=== PATIENT | male | born 1940 | race Caucasian/White ===

== ENCOUNTER 2019-05-31 14:37 | Outpatient (CLI) | payer OTHER ==
[~2019-05-31] VITALS: Ht 182.9 cm; Wt 97.7 kg
[2019-05-31] MEDS ORDERED: METO-370 PO (14:44)
[2019-05-31] MEDS ORDERED: TRIA1CAP4 PO (14:44)
== END 2019-05-31 14:48 | disposition home or self-care (01) ==
LOC: PREOP 14:37
PROVIDERS: ATTEND Specialist
DX: Z01.818 Encounter for other preprocedural examination (principal)

== ENCOUNTER 2019-06-07 06:46 | Day surgery (SDC) | payer MEDICAID, MEDICARE, OTHER ==
[~2019-06-07] VITALS: Ht 182.9 cm; Wt 97.7 kg
[~2019-06-07 06:46] MED LIST: METO-370 PO; TRIA1CAP4 PO
[2019-06-07 07:50] VITALS: BP 127/92
[2019-06-07] MEDS ORDERED: POVIDONE (BETADINE) OPHTH SOLN 5% 30 ML OP ONE (08:00)
[2019-06-07] MEDS ORDERED: LIDOCAINE PF 1% 2 ML AMP IR PRN (08:00)
[2019-06-07] MEDS ORDERED: TIMOLOL MALEATE 0.5% 5 ML (TIMOPTIC) BTL OU PRN (08:00)
[2019-06-07] MEDS ORDERED: MOXIFLOXACIN OPHTH SOLN 5 MG/ML 0.3 ML SYRINGE OP ONE (08:00)
[2019-06-07] MEDS: TETRACAINE 0.5% OPHTH SOLN 4 ML BTL (SINGLE DOSE ONLY) OU PRN ×4 (08:04→08:20)
[2019-06-07] MEDS: CYCLOPENTOLATE 1% (CYCLOGYL) 2 ML DROPS OP SCH ×3 (08:10→08:20)
[2019-06-07] MEDS: PHENYLEPHRINE 10% OPHTH (NEO-SYN) 5 ML BTL OU SCH ×3 (08:10→08:20)
[2019-06-07] MEDS ORDERED: acetaZOLAMIDE ER 500 MG CAP (DIAMOX SEQUELS) PO ONE (08:30)
[2019-06-07] MEDS ORDERED: MIDAZOLAM 2 MG/2 ML (VERSED) VIAL ONE (09:08)
--- NOTE | 2019-06-07 09:34 | Ophthalmologist Pre-Op Note ---
Pre-Operative Progress Note H&P Reviewed The H&P was reviewed, patient examined and no changes noted. Date H&P Reviewed: Jun 07, 2019 Time H&P Reviewed: 09:05 Pre-Op Dx Cataract, Left Eye GISSEL HUFFMAN MD Jun 07, 2019 09:34 POS
--- NOTE | 2019-06-07 09:34 | Ophthalmology Operative Report ---
Cataract removal/placement IOL PREOPERATIVE DIAGNOSIS: Cataract Left Eye POSTOPERATIVE DIAGNOSIS: Cataract Left Eye PROCEDURE: Cataract removal and placement of posterior chamber implant, left eye SURGEON: Dano Huffman ANESTHESIA: Topical with sedation COMPLICATIONS: None ESTIMATED BLOOD LOSS: Minimal DESCRIPTION OF PROCEDURE: After proper informed consent was obtained, the patient, a 78 male, was taken to the Operating Room and the left eye was anesthetized with tetracaine. The left eye was then prepped and draped in the usual manner. A wire lid speculum was placed. A paracentesis was made at the left hand position. Preservative free lidocaine was injected into the anterior chamber followed by viscoelastic. A clear corneal incision was made in the temporal position. A capsulorrhexis was preformed and the central nuclear and cortical material were removed. The posterior capsule was polished and an Gigi 20.0 [id number] was placed into the capsular bag. The residual viscoelastic was aspirated and balanced saline solution was injected into the anterior chamber. Moxifloxacin was injected into the anterior chamber. The wound was checked and found to be water tight. The patient tolerated the procedure well without complications. DANO HUFFMAN MD Jun 07, 2019 09:34 POS
[2019-06-07 09:45] VITALS: BP 109/79
--- NOTE | 2019-06-07 10:26 | Anesthesia-General Post-Op ---
MAC Patient Condition Mental Status/LOC: Same as Preop Cardiovascular: Satisfactory Nausea/Vomiting: Absent Respiratory: Satisfactory Pain: Controlled Complications: Absent Post Op Complications Complications None Follow Up Care/Instructions Patient Instructions None needed. Anesthesiology Discharge Order Discharge Order Patient is doing well, no complaints, stable vital signs, no apparent adverse anesthesia problems. No complications reported per nursing. ALVERTO ATKINS CRNA Jun 07, 2019 10:26 POS
== END 2019-06-07 09:45 | disposition home or self-care (01) ==
LOC: SDC 06:46
PROVIDERS: ATTEND Specialist
DX: H25.12 Age-related nuclear cataract, left eye (principal); I10 Essential (primary) hypertension; G62.9 Polyneuropathy, unspecified; Z79.899 Other long term (current) drug therapy

== ENCOUNTER 2019-06-20 05:35 | Outpatient (CLI) | payer MEDICARE ==
[~2019-06-20] VITALS: Ht 182 cm; Wt 97.7 kg
== END 2019-06-20 14:48 | disposition home or self-care (01) ==
LOC: PREOP 05:35
PROVIDERS: ATTEND Specialist
DX: Z01.818 Encounter for other preprocedural examination (principal)

== ENCOUNTER 2019-06-23 05:46 | Day surgery (SDC) | payer MEDICARE ==
[~2019-06-23] VITALS: Ht 182.9 cm; Wt 97.7 kg
[2019-06-23] MEDS ORDERED: MOXIFLOXACIN OPHTH SOLN 5 MG/ML 0.3 ML SYRINGE OP ONE (06:15)
[2019-06-23] MEDS ORDERED: POVIDONE (BETADINE) OPHTH SOLN 5% 30 ML OP ONE (06:15)
[2019-06-23] MEDS ORDERED: TIMOLOL MALEATE 0.5% 5 ML (TIMOPTIC) BTL OU PRN (06:15)
[2019-06-23] MEDS ORDERED: LIDOCAINE PF 1% 2 ML AMP IR PRN (06:15)
[2019-06-23] MEDS: TETRACAINE 0.5% OPHTH SOLN 4 ML BTL (SINGLE DOSE ONLY) OU PRN ×4 (06:16→06:40)
[2019-06-23 06:21] VITALS: BP 146/98
[2019-06-23] MEDS: PHENYLEPHRINE 10% OPHTH (NEO-SYN) 5 ML BTL OU SCH ×3 (06:25→06:41)
[2019-06-23] MEDS: CYCLOPENTOLATE 1% (CYCLOGYL) 2 ML DROPS OP SCH ×3 (06:25→06:41)
--- NOTE | 2019-06-23 07:05 | Ophthalmologist Pre-Op Note ---
Pre-Operative Progress Note H&P Reviewed The H&P was reviewed, patient examined and no changes noted. Date H&P Reviewed: Jun 23, 2019 Time H&P Reviewed: 07:05 Pre-Op Dx Cataract, Right Eye GISSEL HUFMFAN MD Jun 23, 2019 07:05 POS
[2019-06-23] MEDS ORDERED: MIDAZOLAM 2 MG/2 ML (VERSED) VIAL ONE (07:17)
--- NOTE | 2019-06-23 07:22 | Ophthalmology Operative Report ---
Cataract removal/placement IOL PREOPERATIVE DIAGNOSIS: Cataract Right Eye POSTOPERATIVE DIAGNOSIS: Cataract Right Eye PROCEDURE: Cataract removal and placement of posterior chamber implant, right eye SURGEON: Dano Huffman ANESTHESIA: Topical with sedation COMPLICATIONS: None ESTIMATED BLOOD LOSS: Minimal DESCRIPTION OF PROCEDURE: After proper informed consent was obtained, the patient, a 78 male, was taken to the Operating Room and the right eye was anesthetized with tetracaine. The right eye was then prepped and draped in the usual manner. A wire lid speculum was placed. A paracentesis was made at the left hand position. Preservative free lidocaine was injected into the anterior chamber followed by viscoelastic. A clear corneal incision was made in the temporal position. A capsulorrhexis was preformed and the central nuclear and cortical material were removed. The posterior capsule was polished and Gigi [id number] 20.0 IOL was placed into the capsular bag. The residual viscoelastic was aspirated and balanced saline solution was injected into the anterior chamber. Moxifloxacin was injected into the anterior chamber. The wound was checked and found to be water tight. The patient tolerated the procedure well without complications. DANO HUFFMAN MD Jun 23, 2019 07:22 POS
[2019-06-23 07:30] VITALS: BP 115/79
[2019-06-23] MEDS ORDERED: acetaZOLAMIDE ER 500 MG CAP (DIAMOX SEQUELS) PO ONE (07:30)
--- NOTE | 2019-06-23 13:00 | Anesthesia-General Post-Op ---
MAC Patient Condition Mental Status/LOC: Same as Preop Cardiovascular: Satisfactory Nausea/Vomiting: Absent Respiratory: Satisfactory Pain: Controlled Complications: Absent Post Op Complications Complications None Follow Up Care/Instructions Patient Instructions None needed. Anesthesiology Discharge Order Discharge Order Patient is doing well, no complaints, stable vital signs, no apparent adverse anesthesia problems. No complications reported per nursing. DEON HI CRNA Jun 23, 2019 13:00 POS
== END 2019-06-23 07:30 | disposition home or self-care (01) ==
LOC: SDC 05:46
PROVIDERS: ATTEND Specialist
DX: H25.11 Age-related nuclear cataract, right eye (principal); I10 Essential (primary) hypertension; Z87.891 Personal history of nicotine dependence; Z79.899 Other long term (current) drug therapy

== ENCOUNTER → 2019-09-26 | Outpatient (CLI) | payer MEDICARE ==
[~2019-09-26] MED LIST changes: +CATHETER FLUSH 10 ML SYR IV PRN; -METO-370 PO; +METO50TA7 PO
--- NOTE | 2019-09-26 12:59 | Diagnostic Imaging Report ---
PROCEDURE: CT abdomen and pelvis without contrast. TECHNIQUE: Multiple contiguous axial images were obtained through the abdomen and pelvis without the use of intravenous contrast. Auto Exposure Controls were utilized during the CT exam to meet ALARA standards for radiation dose reduction. INDICATION: Prostate cancer. COMPARISON: No prior examinations are available for comparison. FINDINGS: The lung bases are clear. Liver is normal in size without focal lesions. There is cholelithiasis. There is no biliary ductal dilatation. Spleen is normal. Pancreas is unremarkable. There are bilateral renal cysts. Aorta is nonaneurysmal. There is an umbilical hernia containing a partial loop of small bowel compatible with a Ramsay hernia. There is no evidence of obstruction or strangulation. There is no free air. There is no ascites. No focal inflammatory changes. There is diverticular disease without evidence of diverticulitis. Bladder is normal. There is bilateral spondylolysis at L5 with grade 2 spondylolisthesis of L5 on S1. There are diffuse degenerative changes. There is no definitive evidence of osteoblastic metastatic disease. IMPRESSION: Cholelithiasis. Bilateral adrenal nodules. Bilateral renal cysts. Umbilical hernia containing a partial loop of small bowel without evidence of obstruction or strangulation. Diverticular disease without evidence of diverticulitis. Bilateral spondylolysis at L5 with grade 2 spondylolisthesis of L5 on S1. Additionally there are diffuse degenerative changes of the spine. There is however no definitive evidence of osteoblastic metastatic disease. Dictated by: Dictated on workstation # [id number]
--- NOTE | 2019-09-26 16:16 | Diagnostic Imaging Report ---
INDICATION: Prostate cancer. TECHNIQUE: Anterior and posterior whole-body planar imaging was performed three hours after administration of 27.2 mCi of technetium-99m MDP. FINDINGS: There is an increased uptake in the AC joints, knees, and feet bilaterally presumably osteoarthritic. There is no evidence for widespread osteoblastic metastatic disease. There is otherwise normal uptake of isotope throughout the remainder of the axial and appendicular skeleton. There is physiologic uptake within the kidneys bilaterally with excretion of urinary bladder. IMPRESSION: No evidence of osteoblastic metastatic disease. Dictated by: Dictated on workstation # [id number]
== END ==
LOC: CARD 11:46
PROVIDERS: ATTEND Urology
DX: C61 Malignant neoplasm of prostate (principal); E27.9 Disorder of adrenal gland, unspecified; N28.1 Cyst of kidney, acquired; K42.9 Umbilical hernia without obstruction or gangrene; K57.30 Diverticulosis of large intestine without perforation or abscess without bleeding; M47.816 Spondylosis without myelopathy or radiculopathy, lumbar region; M43.17 Spondylolisthesis, lumbosacral region
CPT/HCPCS: 74176; 78306

== ENCOUNTER 2019-10-31 14:21 | Outpatient (CLI) | payer MEDICARE ==
[~2019-10-31] VITALS: Ht 177 cm; Wt 103.5 kg
[~2019-10-31 14:21] MED LIST changes: -CATHETER FLUSH 10 ML SYR IV PRN
[2019-10-31] MEDS ORDERED: ALLO100T PO (14:28)
[2019-10-31] MEDS ORDERED: AMLO5TAB9 PO (14:28)
[2019-10-31 14:30] VITALS: BP 137/85
== END 2019-10-31 15:04 | disposition home or self-care (01) ==
LOC: PREOP 14:21
PROVIDERS: ATTEND Urology
DX: Z01.818 Encounter for other preprocedural examination (principal)
CPT/HCPCS: 87081

== ENCOUNTER 2019-11-08 07:16 | Day surgery (SDC) | payer MEDICARE ==
[2019-11-08] VITALS (10 sets, daily range): BP systolic 112–133; BP diastolic 73–99
[~2019-11-08] VITALS: Ht 177 cm; Wt 103.5 kg
[~2019-11-08 07:16] MED LIST changes: +ALLO100T PO; +AMLO5TAB9 PO
--- OUTSIDE RECORDS SUMMARY | 2019-11-08 07:22 | XMS REPORT | Continuity of Care Document ---
Author Organization Unknown Address Unknown Phone Unavailable Allergies Active Description Code Type Severity Reaction Onset Reported/Identified Relationship to Patient Clinical Status Yes NO KNOWN DRUG ALLERGIES UNKNOWN UNKNOWN Yes No Known Drug Allergies [id number] Drug Allergy Unknown N/A 06/20/2019 Medications Medication Packaging Start Date St op Date Route Dosage Sig LACTATED RINGERS 1000CC IV BAG INJ ml 08/03/2019 08/10/2019 CONTINUOUSEVERY 0 Hour CEFAZOLIN VIAL INJ 1 GM (ANCEF) 08/03/2019 08/03/2019 ONCE&0830 NORMAL SALINE 1000CC IV BAG INJ 0.9 % (NS 1000CC IV BAG) ml 08/03/2019 08/18/2019 CONTINUOUSEVERY 0 Hour Problems Date Dx Coded Attending Type Code Diagnosis Diagnosed By 06/07/2019 GISSEL HUFFMAN MD Ot G62 .9 POLYNEUROPATHY, UNSPECIFIED 06/07/2019 GISSEL HUFFMAN MD Ot H25.12 AGE-RELATED NUCLEAR CATARACT, LEFT EYE 06/07/2019 GISSEL HUFFMAN MD Ot I10 ESSENTIAL (PRIMARY) HYPERTENSION 06/07/2019 GISSEL HUFFMAN MD Ot 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 06/13/2019 GISSEL HUFFMAN MD Ot G62 .9 POLYNEUROPATHY, UNSPECIFIED 06/13/2019 GISSEL HUFFMAN MD Ot H25.12 AGE-RELATED NUCLEAR CATARACT, LEFT EYE 06/13/2019 GISSEL HUFFMAN MD Ot I10 ESSENTIAL (PRIMARY) HYPERTENSION 06/13/2019 GISSEL HUFFMAN MD Ot Z79.899 OTHER ALF (CURRENT) DRUG THERAPY 06/20/2019 GISSEL HUFFMAN MD Ot Z01.818 ENCOUNTER FOR OTHER PREPROCEDURAL EXAMIN 06/23/2019 GISSEL HUFFMAN MD Ot H25.11 AGE-RELATED NUCLEAR CATARACT, RIGHT EYE 06/23/2019 GISSEL HUFFMAN MD Ot I10 ESSENTIAL (PRIMARY) HYPERTENSION 06/23/2019 GISSEL HUFFMAN MD Ot Z79.899 OTHER ALF (CURRENT) DRUG THERAPY 06/23/2019 GISSEL HUFFMAN MD Ot Z87.891 PERSONAL HISTORY OF NICOTINE DEPENDENCE 06/27/2019 GISSEL HUFFMAN MD Ot H25.11 AGE-RELATED NUCLEAR CATARACT, RIGHT EYE 06/27/2019 GISSEL HUFFMAN MD Ot I10 ESSENTIAL (PRIMARY) HYPERTENSION 06/27/2019 GISSEL HUFFMAN MD Ot Z79.899 OTHER ALF (CURRENT) DRUG THERAPY 06/27/2019 GISSEL HUFFMAN MD Ot Z87.891 PERSONAL HISTORY OF NICOTINE DEPENDENCE 06/29/2019 GISSEL HUFFMAN MD Ot H25.11 AGE-RELATED NUCLEAR CATARACT, RIGHT EYE 06/29/2019 GISSEL HUFFMAN MD Ot I10 ESSENTIAL (PRIMARY) HYPERTENSION 06/29/2019 GISSEL HUFFMAN MD Ot Z79.899 OTHER ALF (CURRENT) DRUG THERAPY 06/29/2019 GISSEL HUFFMAN MD Ot Z87.891 PERSONAL HISTORY OF NICOTINE DEPENDENCE 07/28/2019 AVI MCKEON M86.8X4 OTHER OSTEOMYELITIS, HAND 08/03/2019 AVI MCKEON 274.00 GOUTY ARTHROPATHY, UNSPECIFIED 08/03/2019 AVI MCKEON M10.041 IDIOPATHIC GOUT, RIGHT HAND 09/27/2019 JOSE SAMSON MD Ot C61 MALIGNANT NEOPLASM OF PROSTATE 09/27/2019 JOSE SAMSON MD Ot E27.9 DISORDER OF ADRENAL GLAND, UNSPECIFIED 09/27/2019 JOSE SAMSON MD Ot K42.9 UMBILICAL HERNIA WITHOUT OBSTRUCTION OR 09/27/2019 JOSE SAMSON MD, Ot K57.3 0 DVRTCLOS OF LG INT W/O PERFORATION OR AB 09/27/2019 JOSE SAMSON MD, Ot M43.1 7 SPONDYLOLISTHESIS, LUMBOSACRAL REGION 09/27/2019 JOSE SAMSON MD, Ot M47.8 16 SPONDYLOSIS W/O MYELOPATHY OR RADICULOPA 09/27/2019 JOSE SAMSON MD Ot N28.1 CYST OF KIDNEY, ACQUIRED 09/28/2019 MALI MD, JOSE A Ot C61 MALIGNANT NEOPLASM OF PROSTATE 09/28/2019 JOSE SAMSON MD Ot E27.9 DISORDER OF ADRENAL GLAND, UNSPECIFIED 09/28/2019 JOSE SAMSON MD Ot K42.9 UMBILICAL HERNIA WITHOUT OBSTRUCTION OR 09/28/2019 JOSE SAMSON MD Ot K57.3 0 DVRTCLOS OF LG INT W/O PERFORATION OR AB 09/28/2019 JOSE SAMSON MD Ot M43.1 7 SPONDYLOLISTHESIS, LUMBOSACRAL REGION 09/28/2019 JOSE SAMSON MD Ot M47.8 16 SPONDYLOSIS W/O MYELOPATHY OR RADICULOPA 09/28/2019 JOSE SAMSON MD Ot N28.1 CYST OF KIDNEY, ACQUIRED 10/02/2019 JOSE SAMSON MD Ot C61 MALIGNANT NEOPLASM OF PROSTATE 10/02/2019 JOSE SAMSON MD Ot E27.9 DISORDER OF ADRENAL GLAND, UNSPECIFIED 10/02/2019 JOSE SAMSON MD Ot K42.9 UMBILICAL HERNIA WITHOUT OBSTRUCTION OR 10/02/2019 JOSE SAMSON MD Ot K57.3 0 DVRTCLOS OF LG INT W/O PERFORATION OR AB 10/02/2019 JOSE SAMSON MD Ot M43.1 7 SPONDYLOLISTHESIS, LUMBOSACRAL REGION 10/02/2019 JOSE SAMSON MD Ot M47.8 16 SPONDYLOSIS W/O MYELOPATHY OR RADICULOPA 10/02/2019 JOSE SAMSON MD Ot N28.1 CYST OF KIDNEY, ACQUIRED 10/30/2019 JOSE SAMSON MD Ot C61 MALIGNANT NEOPLASM OF PROSTATE 10/30/2019 JOSE SAMSON MD Ot E27.9 DISORDER OF ADRENAL GLAND, UNSPECIFIED 10/30/2019 JOSE SAMSON MD Ot K42.9 UMBILICAL HERNIA WITHOUT OBSTRUCTION OR 10/30/2019 JOSE SAMSON MD Ot K57.3 0 DVRTCLOS OF LG INT W/O PERFORATION OR AB 10/30/2019 JOSE SAMSON MD Ot M43.1 7 SPONDYLOLISTHESIS, LUMBOSACRAL REGION 10/30/2019 JOSE SAMSON MD Ot M47.8 16 SPONDYLOSIS W/O MYELOPATHY OR RADICULOPA 10/30/2019 MALI VELA, JOSE Paez Ot N28.1 CYST OF KIDNEY, ACQUIRED Procedures There is no data. Results Test Result Range Rheumatiod Factor, Quantitative - 11:47 Rheumatoid Factor, Quantitative <15 IU/ml 0-30 Uric Acid - 07/29/19 11:47 Uric Acid 9.6 mg/dL 2.6-7.2 Crystal,Synovial/Joint Fl - 07/29/19 15: 00 CRYSTAL,SYNOVIAL/JOINT FL test not performed Crystal,Synovial/Joint Fl - 07/29/19 15: 00 Crystal,Synovial/Joint Fl TNP Request Problem - 07/29/19 15:00 Request Problem TNP Comprehensive Metabolic Panel - 08/03/19 07:41 Albumin 3.9 g/dL 3.6-5.1 ALP 80 U/L 35-130 ALT 13 U/L 6-45 Anion Gap 16 6-14 AST 21 U/L 2-40 BUN 31 mg/dL 5-25 Calcium 8.7 mg/dL 8.3-10.4 Chloride 103 mmol/L 95-114 CO2 24 mEq/L 22-33 Creat 2.00 mg/dL 0.50-1.50 eGFR 32 mL/min/1.73m2 >59 Globulin 3.0 g/dL 2.3-3.5 Glucose 95 mg/dL 70-110 Osmo 293 280-295 Potassium 4.3 mmol/L 3.5-5.3 Sodium 139 mmol/L 134-148 TBil 0.9 mg/dL 0.2-1.2 TP 6.9 g/dL 6.0-8.3 MRSA Screen - 08/03/19 07:41 FINAL CULTURE RESULTS MRSA Negative Nasal Culture MEDIA PLATED Setup at 07:45 on 08/03/2019 Other Culture - 08/03/19 08:50 PRELIM CULTURE RESULTS No Growth 24 hours FINAL CULTURE RESULTS No Growth 48 hours MEDIA PLATED Setup at 12:02 on 08/03/2019 Anaerobic Culture - 08/03/19 08:50 ANAEROBIC CULTURE FINAL REPORT RESULT 1 NO ANAEROBIC GROWTH IN 72 HOURS. Anaerobic Culture - 08/03/19 08:50 Anaerobic Culture Note Surgical Pathology - 08/03/19 09:10 Surg Path Sent to [facility] Pathology Crystal,Synovial/Joint Fl - 08/03/19 09: 10 CRYSTAL,SYNOVIAL/JOINT FL MONOSODIUM URATE C RYSTALS OBSERVED BY POLARIZED LIGHT MICROSCOPY. NONE SEEN Crystal,Synovial/Joint Fl - 08/03/19 09: 10 Crystal,Synovial/Joint Fl Comment None seen Comprehensive Metabolic Panel - 08/03/19 09:47 Albumin 3.3 g/dL 3.6-5.1 ALP 68 U/L 35-130 ALT 11 U/L 6-45 Anion Gap 14 6-14 AST 17 U/L 2-40 BUN 28 mg/dL 5-25 Calcium 7.8 mg/dL 8.3-10.4 Chloride 109 mmol/L 95-114 CO2 22 mEq/L 22-33 Creat 1.84 mg/dL 0.50-1.50 eGFR 36 mL/min/1.73m2 >59 Globulin 2.4 g/dL 2.3-3.5 Glucose 87 mg/dL 70-110 Osmo 294 280-295 Potassium 4.6 mmol/L 3.5-5.3 Sodium 140 mmol/L 134-148 TBil 0.6 mg/dL 0.2-1.2 TP 5.7 g/dL 6.0-8.3 Comprehensive Metabolic Panel - 08/11/19 08:36 Albumin 4.0 g/dL 3.6-5.1 ALP 81 U/L 35-130 ALT 18 U/L 6-45 Anion Gap 16 6-14 AST 18 U/L 2-40 BUN 34 mg/dL 5-25 Calcium 9.4 mg/dL 8.3-10.4 Chloride 105 mmol/L 95-114 CO2 25 mEq/L 22-33 Creat 2.02 mg/dL 0.50-1.50 eGFR 32 mL/min/1.73m2 >59 Globulin 3.1 g/dL 2.3-3.5 Glucose 110 mg/dL 70-110 Osmo 299 280-295 Potassium 4.7 mmol/L 3.5-5.3 Sodium 141 mmol/L 134-148 TBil 0.6 mg/dL 0.2-1.2 TP 7.1 g/dL 6.0-8.3 [facility] - 08/29/19 12:51 Anion Gap 14 6-14 BUN 23 mg/dL 5-25 Calcium 9.0 mg/dL 8.3-10.4 Chloride 105 mmol/L 95-114 CO2 25 mEq/L 22-33 Creat 1.85 mg/dL 0.50-1.50 eGFR 35 mL/min/1.73m2 >59 Glucose 122 mg/dL 70-110 Osmo 294 280-295 Potassium 4.0 mmol/L 3.5-5.3 Sodium 140 mmol/L 134-148 Uric Acid - 09/11/19 09:49 Uric Acid 6.9 mg/dL 2.6-7.2 Creatinine Clearance - 09/18/19 09:55 Creat 1.82 mg/dL 0.50-1.50 Creatine Clearance 42 mL/min 80-110 Total Volume 1500 mL 0-4000 Methicillin resistant Staphylococcus aur eus (MRSA) screening culture - 10/31/19 14:46 Methicillin resistant Staphylococcus aureus (MRSA) scr eening culture NEG NRG Encounters ACCT No. Visit Date/Time Discharge Status Pt. Type Provider Facility Loc./Unit Complaint [id number] 10/02/2019 13:50:00 [id number] 09:[id number] 09:44[facility]00 09/11/2019 [facility]59 [id number] 08/30/2019 13:11:00 08/30/2019 23:59 [id number] 08/30/2019 10:09:00 08/30/2019 23:59 :00 DIS [facility] AVI MCKEON [id number] 08/29/2019 12:46:00 08/29/2019 [id number] 08[facility]16[facility]2019 09:35:00 08/16/2019 23:59 [id number] 08[facility]14[facility]2019 09:37:00 08[facility]14/2019 [id number]11[facility]2019 08:32:00 08/11/2019 23:59 :00 [facility] Ida Kern [id number] 08/03/2019 00:00:00 08/03/2019 10:23 :00 DIS Outpatient AVI MCKEON [id number] 08/01/2019 09:36:00 08/01/2019 23:59 :00 DIS Outpatient AVI MCKEON [id number] 07/29/2019 11:27:00 07/29/2019 23:59 :00 DIS Outpatient Tate King [id number] 07/29/2019 09:36:00 07/29/2019 23:59 :00 DIS Outpatient Tate King [id number] 08/03/2019 07:30:27 Document Registration [id number] 08/04/2019 08:09:00 Document Registration [id number] 08/08/2019 16:09:00 Document Registration [id number] 10/31/2019 14:21:00 15:04:00 DIS Outpatient JOSE SAMSON MD [facility] PREOP PROSTATE CANCER [id number] 10/25/2019 14:46:00 23:59:59 CLS Outpatient NICCI VEGA MD [facility] ONC [id number] 09/26/2019 11:46:00 23:59:59 CLS Outpatient JOSE SAMSON MD [facility] CARD CA PROSTATE [id number] 06/23/2019 05:46:00 07:30:00 DIS Outpatient GISSEL HUFFMAN MD [facility] CATARACT RIGHT EYE [id number] 06/20/2019 05:35:00 14:48:00 DIS Outpatient GISSEL HUFFMAN MD [facility] PREOP CATARACT RIGHT EYE [id number] 06/07/2019 06:46:00 09:45:00 DIS Outpatient GISSEL HUFFMAN MD [facility] CATARACT [id number] 05/31/2019 14:37:00 14:48:00 DIS Outpatient GISSEL HUFFMAN MD [facility] PREOP CATARACT [id number] 11/08/2019 09:30:00 P EN Preadmit JOSE SAMSON MD [facility] PROSTATE CANCER [id number] 08/01/2019 16:09:00 Document Registration [id number] 04/11/2019 08:46:13 04/11/2019 23:59: 59 CLS Outpatient KEZIA RADU Berger [id number] 04/06/2019 14:31:27 04/06/2019 23:59: 59 CLS Outpatient KEZIA ARDU Berger [id number] 09/30/2017 12:23:14 09/30/2017 23:59: 59 CLS Outpatient KEZIA RADU Berger [id number] 04/01/2017 15:02:49 04/01/2017 23:59: 59 CLS Outpatient KEZIA RADU Berger [id number] 10/05/2016 11:31:40 10/05/2016 23:59: 59 CLS Outpatient KEZIA RADU Berger [id number] 10/01/2016 12:02:28 10/01/2016 23:59: 59 CLS Outpatient RADU MAST [id number] 09/29/2016 15:16:39 09/29/2016 23:59: 59 CLS Outpatient RADU MAST [id number] 05/08/2016 10:36:46 05/08/2016 23:59: 59 CLS Outpatient Rubio Levine [id number] 04/10/2016 08:39:07 04/10/2016 23:59: 59 CLS Outpatient RADU MAST [id number] 03/30/2016 11:54:51 03/30/2016 23:59: 59 CLS Outpatient RADU MAST [id number] 02/06/2016 10:47:17 02/06/2016 23:59: 59 CLS Outpatient RADU MAST
--- NOTE | 2019-11-08 07:23 | Progress Note-Pre Operative ---
Pre-Operative Progress Note H&P Reviewed The H&P was reviewed, patient examined and no changes noted. Date Seen by Provider: Nov 08, 2019 Time Seen by Provider: :25 Date H&P Reviewed: Nov 08, 2019 Time H&P Reviewed: : Pre-Operative Diagnosis: CA PROSTATE JOSE SAMSON MD Nov 08, 2019 07:23
--- NOTE | 2019-11-08 07:29 | Discharge Inst-Urology ---
Discharge Inst-Urology Reconcile Patient Problems Problems Reviewed?: Yes Final Diagnosis CA PROSTATE Patient Instructions/Follow Up Plan/Assessment/Instructions Discharge with campbell and lef bag day time and large bag night time with instructions Come to office wednesday 9am to JULIO CESAR Campbell Please make appointment to been seen in office in 2 weeks. Rest till then Keep bowels soft and moving Increase oral fluids for 48 hours and then as needed. Diet as tolerated. If questions or concerns contact your physician Or seek help at emergency department. JOSE SAMSON MD Nov 08, 2019 07:29
--- NOTE | 2019-11-08 07:34 | Progress Note-Post Operative ---
Post-Operative Progess Note Surgeon (s)/Television News Photographer (s) Surgeon JOSE SAMSON MD Television News Photographer: Zackery VEGA Pre-Operative Diagnosis CA PROSTATE Post-Operative Diagnosis SAME Procedure & Operative Findings Date of Procedure 11/08/19 Procedure Performed/Findings BRACHYTHERAPY, CYSTOGRAM, AND PLACEMENT OF SPACE OAR Anesthesia Type GENERAL Estimated Blood Loss Estimated blood loss (mL): NEGLIGIBLE Specimens/Packing Specimens Removed NONE Packing: NONE JOSE SAMSON MD Nov 08, 2019 07:34
[2019-11-08] MEDS ORDERED: LACTATED RINGERS 1,000 ML IV PRN (07:37)
[2019-11-08] MEDS ORDERED: LEVOFLOXACIN 500 MG/100 ML IV 100 ML IV ONE (07:45)
[2019-11-08] MEDS ORDERED: CATHETER FLUSH 10 ML SYR IV PRN (08:00)
[2019-11-08] MEDS ORDERED: PHEN-640 PO ×2 (09:28→09:32)
[2019-11-08] MEDS ORDERED: TMSL.4C PO ×2 (09:28→09:29)
[2019-11-08] MEDS ORDERED: CIPR-225 PO (09:28)
[2019-11-08] MEDS ORDERED: MIDAZOLAM 2 MG/2 ML (VERSED) VIAL ONE (09:40)
[2019-11-08] MEDS ORDERED: fentaNYL INJECTION 100 MCG/2 ML AMP ONE (09:40)
[2019-11-08] MEDS ORDERED: BACITRACIN OINTMENT 28 GM TUBE ONE (10:29)
[2019-11-08] MEDS ORDERED: proPOfol 200 MG/20 ML (DIPRIVAN) VIAL IV ONE (11:00)
[2019-11-08] MEDS ORDERED: SEVOFLURANE (ULTANE) 15 ML INHAL SOLN ONE (11:00)
[2019-11-08] MEDS ORDERED: ONDANSETRON 4 MG/2 ML (SDV) Z0FRAN ONE (11:00)
[2019-11-08] MEDS ORDERED: PHENYLEPHRINE 100 MCG/ML 10 ML (ANESTHESIA) SYR ONE (11:00)
[2019-11-08] MEDS ORDERED: LIDOCAINE PF 2% 5 ML (XYLOCAINE) VIAL ONE (11:00)
[2019-11-08] MEDS ORDERED: ROCURONIUM 10 MG/ML 5 ML SYRINGE IV ONE (11:00)
[2019-11-08] MEDS ORDERED: morphine INJ 10 MG/ML 1ML (SYR OR VIAL) ONE (11:04)
[2019-11-08] MEDS ORDERED: MEPERIDINE (DEMEROL) INJ 50 MG/ML IVP ONE (11:15)
[2019-11-08] MEDS ORDERED: fentaNYL INJECTION 100 MCG/2 ML AMP IVP ONE (11:15)
[2019-11-08] MEDS ORDERED: morphine INJ 10 MG/ML 1ML (SYR OR VIAL) IVP ONE (11:15)
[2019-11-08] MEDS ORDERED: ONDANSETRON 4 MG/2 ML (SDV) Z0FRAN IVP PRN (11:15)
--- NOTE | 2019-11-08 11:50 | NUR ---
TO AMB SURG FROM PAR PER CART. ALERT, REPORTS "PRESSURE, LIKE I NEED TO URINATE", BUT STATES HE REALIZES HE HAS A CATHETER. RATES DISCOMFORT 1 ON NUMERIC SCALE. URINE CLEAR, DARK YELLOW TO ESCOBAR CATH BAG ON LOWER RAIL OF BED. CATHETER SECURED TO LEFT LEG WITH STATLOCK CATHETER DEVICE. NO BLEEDING FROM PENILE MEATUS. TAPED ABD IN PLACE AT RECTUM. NO BLEEDING FROM PERINEUM OR RECTUM. PO FLUIDS PROVIDED. ON 02 AT 3L PER NC.
--- NOTE | 2019-11-08 12:45 | NUR ---
TAKING PO FLUIDS WITHOUT PROBLEM. NO CHANGE IN ASSESSMENTS. O2 DC'D.
--- NOTE | 2019-11-08 13:35 | NUR ---
PRESCRIPTIONS CALLED TO [facility], [place], [place]. NO CHANGE IN ASSESSMENTS. DISCHARGE INSTRUCTIONS AND ESCOBAR CARE DISCUSSED WITH AND DEMONSTRATED TO PT AND FRIEND. ESCOBAR CATH PUT TO LEG BAG FOR DISMISSAL. SUPPLIES SENT WITH PT FOR CATH CARE.
--- NOTE | 2019-11-08 15:36 | Diagnostic Imaging Report ---
INDICATION: Fluoroscopy during brachytherapy. EXAMINATION: Fluoroscopy was provided during brachytherapy. FINDINGS: 16 seconds of fluoroscopic time was utilized. A single image was obtained demonstrating multiple radiation seed implants within the prostate. IMPRESSION: Fluoroscopy for brachytherapy. Dictated by: Dictated on workstation # [id number]
--- NOTE | 2019-11-10 08:55 | Anesthesia-General Post-Op ---
General Patient Condition Mental Status/LOC: Same as Preop Cardiovascular: Satisfactory Nausea/Vomiting: Absent Respiratory: Satisfactory Pain: Controlled Complications: Absent Post Op Complications Complications None Follow Up Care/Instructions Patient Instructions pt seen after surgery and doing well Anesthesia/Patient Condition Patient Condition Patient is doing well, no complaints, stable vital signs, no apparent adverse anesthesia problems. No complications reported per nursing. JESUS SEGURA CRNA Nov 10, 2019 08:55
== END 2019-11-08 13:35 | disposition home or self-care (01) ==
LOC: SDC 07:16
PROVIDERS: ATTEND Urology
DX: C61 Malignant neoplasm of prostate (principal); I10 Essential (primary) hypertension; M10.9 Gout, unspecified; Z79.899 Other long term (current) drug therapy
CPT/HCPCS: 76965; 77290; 77318; 77332; 77370; 77470; 77778

== ENCOUNTER 2019-12-06 15:02 | Outpatient (RCR) | payer MEDICARE ==
[~2019-12-06 15:02] MED LIST changes: +CIPR-225 PO; +PHEN-640 PO; +TMSL.4C PO
== END 2020-01-23 | disposition home or self-care (01) ==
LOC: ONC 15:02
PROVIDERS: ATTEND Radiology Radiation Oncology
DX: Z51.0 Encounter for antineoplastic radiation therapy (principal); C61 Malignant neoplasm of prostate; I10 Essential (primary) hypertension; M10.9 Gout, unspecified; Z79.899 Other long term (current) drug therapy
CPT/HCPCS: 76873; G0463; 77290; 99205

== ENCOUNTER 2020-04-24 15:26 | Outpatient (RCR) | payer MEDICARE | END 2020-05-28 | disposition home or self-care (01) | LOC: ONC 15:26 | PROVIDERS: ATTEND Radiology Radiation Oncology | DX: Z51.0 Encounter for antineoplastic radiation therapy (principal); C61 Malignant neoplasm of prostate; I10 Essential (primary) hypertension; M10.9 Gout, unspecified; Z79.899 Other long term (current) drug therapy | CPT/HCPCS: 77300; 77301; 77334; 77336; 77338; 77385 ==

== ENCOUNTER 2020-06-06 13:59 | Outpatient (RCR) | payer MEDICARE ==
[~2020-06-06 13:59] MED LIST changes: +AMLO-250 PO; -AMLO5TAB9 PO
== END 2020-09-04 | disposition home or self-care (01) ==
LOC: ONC 13:59
PROVIDERS: ATTEND Radiology Radiation Oncology
DX: C61 Malignant neoplasm of prostate (principal); I10 Essential (primary) hypertension; M10.9 Gout, unspecified; Z79.899 Other long term (current) drug therapy
CPT/HCPCS: 99213